=== PATIENT | female | born 1965 | race Caucasian/White ===

== ENCOUNTER 2018-04-11 00:18 | Inpatient (IN) | payer OTHER ==
[~2018-04-11] VITALS: Ht 165.1 cm; Wt 59.0 kg
[~2018-04-11 00:18] MED LIST: SYNTHROID75 MCG PO
[2018-04-11] MEDS ORDERED: MIRALAX17 G1 PO (09:55)
[2018-04-11] MEDS ORDERED: DILAUDID2 M1 PO (09:55)
[2018-04-11] MEDS ORDERED: COLACE100 M1 PO (09:55)
[2018-04-11] MEDS ORDERED: MS CONTIN15 M3 PO (09:55)
[2018-04-11] MEDS ORDERED: ASPIRIN EC81 M1 PO (09:55)
--- NOTE | 2018-04-11 09:59 | Patient Discharge Instructions ---
Discharge Instructions General Discharge Information You were seen/treated for: Right hip osteoarthritis You had these procedures: Right total hip arthroplasty Watch for these problems: Fever over 100.4 Redness and swelling around wound Drainage from wound Unable to bear weight on right leg Chest pain or shortness of breath No bath, but you may shower: Yes Other wound care: Daily dry dressing change Keep incision clean and dry Diet Continue normal diet: Yes Activity Activity Self Limited: Yes Activity Limited to: Weight bear as tolerated (with rolling walker) Acute Coronary Syndrome Inclusion Criteria At DC or during hospital stay patient has or had the following: ACS DIAGNOSIS No Discharge Core Measures Meds if any: Prescribed or Continued at Discharge Meds if any: NOT Prescribed or Continued at Discharge Congestive Heart Failure Inclusion Criteria At DC or during hospital stay patient has or had the following: CHF DIAGNOSIS No Discharge Core Measures Meds if any: Prescribed or Continued at Discharge Meds if any: NOT Prescribed or Continued at Discharge Cerebrovascular accident Inclusion Criteria At DC or during hospital stay patient has or had the following: CVA/TIA Diagnosis No Discharge Core Measures Meds if any: Prescribed or Continued at Discharge Meds if any: NOT Prescribed or Continued at Discharge Venous thromboembolism Inclusion Criteria VTE Diagnosis No VTE Type NONE VTE Confirmed by (Test) NONE Discharge Core Measures - Per Current guidelines, there needs to be overlap - treatment for the first 5 days of Warfarin therapy. - If discharged on Warfarin prior to 5 days of - overlap therapy, the patient will need to be - assessed for post discharge needs including - *Post discharge parental anticoagulation - *Warfarin and/or parental anticoagulation education - *Follow up date to check INR post discharge At least 5 days overlap therapy as Inpatient No Meds if any: Prescribed or Continued at Discharge Note: Overlap Therapy is Warfarin and Anticoagulant Meds if any: NOT Prescribed or Continued at Discharge
--- NOTE | 2018-04-11 10:01 | Admission Core Measures ---
Acute Coronary Syndrome (CM) ACS Core Measures Acute Coronary Syndrome Diagnosis No Congestive Heart Failure (NEW) CHF Core Measures Congestive Heart Failure Diagnosis No Cerebrovascular Accident CVA Core Measures CVA/TIA Diagnosis No Venous Thromboembolism VTE Core Huey (View Protocol) VTE Risk Factors Surgery No Mechanical VTE Prophylaxis d/t N/A MechProphylax Ordered No VTE Pharm Prophylaxis d/t NA PharmProphylax ordered Problem List As ranked by this Provider includes Assessment & Plan 1. Unilateral primary osteoarthritis, right hip HOME MEDS Home Med List Aspirin (Ecotrin*) 81 MG TABLET.DR 1 TAB PO BID DVT PPX Docusate Sodium (Colace) 100 MG CAPSULE 1 CAP PO BID STOOL SOFTENER Hydromorphone HCl (Dilaudid) 2 MG TABLET 1-2 TAB PO Q4-6 PRN PRN PAIN Levothyroxine Sodium (Synthroid) 75 MCG TABLET 1 TAB PO DAILY REPLACEMENT ( Reported) Morphine Sulfate (Ms Contin) 15 MG TABLET.ER 1 TAB PO BID PAIN Polyethylene Glycol 3350 (Miralax) 17 GRAM POWD.PACK 1 PAC PO DAILY CONSTIPATION
--- NOTE | 2018-04-11 10:02 | Surg Short-stay <48hrs Dis Sum ---
Visit Information Visit Dates Admission Date: 04/11/18 Surgical Short Stay DC Summary Admission Diagnosis: Right hip osteoarthritis Final Diagnosis: Same Procedure(s): Right total hip arthroplasty Summary/Significant Findings: Patient tolerated procedure well. Postoperatively she was tolerating regular diet, voiding spontaneously, pain was well managed and she was ambulating with physical therapy using a rolling walker and was cleared for discharge to home with health services Condition at Discharge: Good Discharge Disposition: home health services Discharge instructions provided to patient/family: Yes Post discharge follow-up plan: Follow-up with Dr. KOCH in 6 weeks. Call sooner with any questions or concerns
--- NOTE | 2018-04-11 10:16 | PN- Orthopedic ---
Subjective Subjective: Postop check Patient recovering well in PACU. Still with lower extremity paresthesias from spinal states that sensation is slowly improving. Patient denies pain. Patient denies nausea. Has not ambulated or voided yet Objective Vital Signs and I&Os Intake & Output 04/11 1600 04/11 0800 04/11 0000 04/10 1600 04/10 0800 04/10 0000 Intake Total Output Total Balance Patient 130 lb Weight Vital signs stable, afebrile in PACU Physical Exam: General- NAD Resperations- clear bialaterlly Cardiac-regular rate and rhythm Abdomen-soft nontender with positive bowel sounds Extremities-dressing is clean and dry, RIGHT thigh is soft with no erythema, minimal tenderness around incision. Calves are soft bilaterally and non- tenderness. 2+ posterior tib pulse bilaterally Current Medications: Current Medications Sig/Lidia Start time Last Medication Dose Route Stop Time Status Admin Acetaminophen 0 .STK-MED ONE 04/11 0709 DC PO Acetaminophen 975 MG ONCE 04/11 0000 NR PO 04/11 235 Cefazolin Sodium 2,000 MG ONCE 04/11 0000 NR IV 04/11 235 Midazolam HCl 0 .STK-MED ONE 04/11 0703 DC .ROUTE Oxycodone HCl 0 .STK-MED ONE 04/11 0709 DC PO Oxycodone HCl 10 MG ONCE 04/10 0000 DC PO 04/10 235 Results Last 48 Hours of Labs: Laboratory Tests 04/11 0635 Urines Urine Test NEGATIVE Assessment/Plan Assessment/Plan 52-year-old female with history of hypothyroidism now here status post right total hip arthroplasty postop day 0. Patient is recovering well and stable in the PACU. Patient is planning on going home today pain management PT- WBAT with rolling walker DVT PPX- ASA BID FU AM labs if still here Regular diet Regular home medications Encourage IS DC planningplan is for home with health services possibly today if cleared by physical therapy Dressing change Post-op day2 Core Measures Venous Thromboembolism VTE Risk Factors Surgery No Mechanical VTE Prophylaxis d/t N/A MechProphylax Ordered No VTE Pharm Prophylaxis d/t NA PharmProphylax ordered
[2018-04-11 11:00] VITALS: BP 100/58
--- NOTE | 2018-04-11 11:03 | RADIOLOGY REPORT ---
EXAMINATION: XR HIP, RIGHT CLINICAL INFORMATION: Right total hip replacement. In PACU. COMPARISON: None TECHNIQUE: Two views of the right hip. FINDINGS: The patient is status post total right hip arthroplasty with anatomic alignment demonstrated. The prosthetic components are well-seated within the venetie ira bone. No hardware failure or venetie ira bone fracture is seen. Postoperative changes are noted in the soft tissues with small amount of soft tissue emphysema seen. Included portions of the right hemipelvis including the right sacroiliac joint and the pubic symphysis are unremarkable. Mild degenerative changes are seen in the lower lumbar spine. IMPRESSION: Anatomic alignment status post total right hip arthroplasty. No hardware failure or venetie ira bone fracture seen.
--- NOTE | 2018-04-11 15:39 | Operative Report ---
Operative/Inv Procedure Report Surgery Date: 04/11/18 Name of Procedure: Right total hip replacement Pre-Operative Diagnosis: Primary right hip DJD Post-Operative Diagnosis: Same Estimated Blood Loss: 300 Surgeon/Seasonal Recruiter: Robi CONLEY,Jordan Alanis Anesthesia: block Operative/Procedure Note Note: Description of Procedure: The patient was taken to the operating room and positively identified. After induction of spinal anesthesia and administration of appropriate pre-operative antibiotics, the patient was positioned supine on the operating room table and all bony prominences were well padded. After performing a surgical timeout, the right lower extremity was prepped and draped in the usual sterile fashion. A direct anterior approach was made to the right hip. The incision was carried sharply through superficial soft tissues to the level of the fascia. Meticulous hemostasis was maintained with Bovie electocautery. The fascia over the tensor fascia ana muscle was opened sharply and the interval between the TFL and the sartorius was entered bluntly taking care to stay lateral to the lateral femoral cutaneous nerve. Retractors were placed around the femoral neck and the pericapsular fat was identified. The ascending branches of the lateral femoral circumflex vessels were identified and carefully coagulated. The pericapsular fat and anterior capsule were then resected. A napkin ring osteotomy was performed and the femoral head was removed without difficulty. Attention was then turned to the acetabulum. After appropriate placement of retractors, the acetabulum was exposed. Soft tissue was cleaned from the acetabular margin and notch. Overhanging osteophytes were removed and the teardrop was exposed. The acetabulum was then sequentially reamed to accept a 52 mm Carlton Tritanium hemispherical solid shell. This was impacted into place in the appropriate position and fitted with a 32 mm Trident X3 zero degree polyethylene insert. Attention was then turned to the femur. After performing the appropriate ligament releases, the proximal femur was exposed. It was then sequentially broached to accept a size 3 Carlton Accolade II stem. This was trialed for leg length and stability. The trial component was removed and the final component was impacted into place. The trunnion was carefully cleaned and fit with a 32 mm, +4 Biolox delta ceramic femoral head. The hip was reduced and put through a full range of motion and found to be stable. The articular space was then irrigated with sterile saline. The periarticular soft tissues were infilitrated with Marcaine. The fascial layer was closed with interrupted #1 vicryl suture and the skin was re-approximated with interrupted 2 -0 vicryl. The skin was closed with a running 3-0 V-Lock suture. Steri-strips and a sterile dressing were applied. The patient was awakened and taken to the recovery room in satisfactory condition.
== END 2018-04-11 15:40 | disposition home health service (06) | DRG 470 ==
LOC: SDA 00:18 → ENRESERV 09:59 → ENTRNSPT 10:39 → EDTRNSPT 10:46 → EDTRNSPTSTS 10:46 → 2NA 10:55 → CMPTRNSPT 11:02 → ENTRNSPT 15:15 → EDTRNSPTSTS 15:26 → EDTRNSPT 15:27 → 2NA 15:40 → CMPTRNSPT 15:51
PROC: 0SR904A Replacement of Right Hip Joint with Ceramic on Polyethylene Synthetic Substitute, Uncemented, Open Approach (ICD-10-PCS; principal; 2018-04-11)
DX: M16.11 Unilateral primary osteoarthritis, right hip (principal); E03.9 Hypothyroidism, unspecified; Z96.642 Presence of left artificial hip joint
CPT/HCPCS: 2NAP; 73502-RT; 81025; 97116-GO; 97161-GP; J0131; J0690; J0735; J2405; J3490; J7042